=== PATIENT | female | born 1945 | race Caucasian/White ===

== ENCOUNTER 2017-08-13 10:55 | Outpatient (CLI) | payer MEDICARE ==
--- NOTE | 2017-08-14 17:09 | Mammography Report ---
DIGITAL SCREENING MAMMOGRAM: 08/13/2017 CLINICAL INDICATION: A 72-year-old with family history of breast cancer, history of benign biopsy fo r screening. COMPARISON: 07/2016, 11/2014, 11/2013, 11/2012, 10/2011, 10/2010. TECHNIQUE: Routine CC and MLO projections were obtained of the breasts. The breasts again demonstrate heterogeneously dense fibroglandular parenchyma bilaterally. Punctate, typically benign calcifications are present. No suspicious masses, clustered microcalcifications, o r regions of architectural distortion are identified. IMPRESSION: BENIGN FINDINGS. RECOMMENDATION: ROUTINE ANNUAL SCREENING UNLESS OTHERWISE CLINICALLY INDICATED. BIRADS CATEGORY: 2, BENIGN FINDINGS. STANDARD QUALIFYING STATEMENTS 1. This examination was reviewed with the aid of Computed-Aided Detection (CAD). 2. A negative or benign imaging report should not delay biopsy if clinically suspicious findings are present. Consider surgical consultation if warranted. More than 5% of cancers are not identified b y imaging. 3. Dense breasts may obscure an underlying neoplasm. JOB #: [id number] EXT JOB #:[id number]
== END 2017-08-13 10:56 | disposition home or self-care (01) ==
LOC: DI.S 10:55
PROVIDERS: ATTEND Physician Assistant
DX: Z12.31 Encounter for screening mammogram for malignant neoplasm of breast (principal); Z80.3 Family history of malignant neoplasm of breast
CPT/HCPCS: 77067

== ENCOUNTER 2017-10-18 09:39 | Outpatient (CLI) | payer MEDICARE ==
--- NOTE | 2017-10-23 08:42 | XRAY Report ---
EXAMINATION: THREE-VIEW LUMBAR SPINE. 10/18/2017 CLINICAL INDICATION: Pain, radicular symptoms. FINDINGS: AP, lateral, coned-down views of the lumbar spine demonstrate moderate degenerative disk and facet disease, with minimal degenerative dextroscoliosis. There is no evidence of acute fracture or subluxation. IMPRESSION: MODERATE DEGENERATIVE CHANGES. TD: 10/18/2017 13:21 [facility]
== END 2017-10-18 09:40 | disposition home or self-care (01) ==
LOC: DI.S 09:39
PROVIDERS: ATTEND Physician Assistant
DX: M51.36 Other intervertebral disc degeneration, lumbar region (principal); M47.896 Other spondylosis, lumbar region; M41.86 Other forms of scoliosis, lumbar region
CPT/HCPCS: 72100

== ENCOUNTER 2019-04-14 08:03 | Outpatient (CLI) | payer MEDICARE ==
--- NOTE | 2019-04-14 10:45 | Mammography Report ---
Reason: ENCOUNTER FOR SCREENING MAMMOGRAM FOR MALIGNANT NE Procedure Date: 04/14/2019 Accession Number: [id number] / [id number] Procedure: INES - Screening Mammo w/Jae CPT Code: FULL RESULT: EXAM: Screening Mammo w/Jae DATE: 04/14/2019 8:52 AM CLINICAL HISTORY: Screening TECHNIQUE: (B) - Bilateral CC and MLO 2-D/3-D views were obtained. COMPARISON: 08/13/2017, 01/22/2016 PARENCHYMAL PATTERN: (A) - The breasts demonstrate scattered fibroglandular densities bilaterally. FINDINGS: There are no suspicious masses, calcifications, or areas of distortion. IMPRESSION: Negative examination. BI-RADS category 1. RECOMMENDATION: (ANNUAL) - Recommend routine annual screening mammography. BI-RADS CATEGORY: (1) - Negative. STANDARD QUALIFYING STATEMENTS: 1. This examination was not reviewed with the aid of Computer-Aided Detection (CAD). 2. A negative or benign imaging report should not preclude biopsy if clinically suspicious findings are present. 3. Dense breasts may obscure an underlying neoplasm. 4. This examination was reviewed with the aid of 3D breast imaging (tomosynthesis).
== END 2019-04-14 08:04 | disposition home or self-care (01) ==
LOC: DI 08:03
PROVIDERS: ATTEND Physician Assistant
DX: Z12.31 Encounter for screening mammogram for malignant neoplasm of breast (principal)
CPT/HCPCS: 77063; 77067

== ENCOUNTER 2019-04-14 08:05 | Outpatient (CLI) | payer MEDICARE ==
--- NOTE | 2019-04-14 14:39 | DEXA Report ---
Reason: ASYMPTOMATIC MENOPAUSAL STATE Procedure Date: 04/14/2019 Accession Number: [id number] / [id number] Procedure: DEX - Dexa Spine and/or Hip CPT Code: FULL RESULT: EXAM: Dexa Spine and/or Hip DATE: 04/14/2019 8:45 AM CLINICAL HISTORY: Postmenopausal osteoporosis screening TECHNIQUE: Dual energy x-ray absorptiometry (DXA) was performed on a [employer] System. Regions measured are the AP Spine, femoral neck, and if needed forearm. COMPARISON: None. In accordance with the International Society for Clinical Densitometry (ISCD) guidelines, data from previous exams may be reanalyzed using current recommendations and techniques. This is done to allow a more accurate basis for comparison with the current study. FINDINGS: The data for the lumbar spine is as follows: BMD (g/cm/cm) T-SCORE Z-SCORE REGION L1 0.954 -1.5 0.6 L2 1.000 -1.7 0.4 L3 0.996 -1.7 0.4 L4 0.992 -1.7 0.4 TOTAL 0.987 -1.6 0.5 NOTE: All evaluable vertebrae are used for classification The data for the hip is as follows: BMD (g/cm/cm) T-SCORE Z-SCORE REGION Neck 0.839 -1.4 0.6 TOTAL 0.840 -1.3 0.5 NOTE: The femoral neck or total proximal femur, whichever is lowest, is used for classification. IMPRESSION: THE WHO CLASSIFICATION BASED ON THE INTERNATIONAL REFERENCE STANDARD IS OSTEOPENIA. THE FRACTURE RISK IS INCREASED. RECOMMENDATION: Patients with diagnosis of osteoporosis or osteopenia should have regular bone mineral density assessment. For those eligible for Medicare, routine testing is allowed once every 2 years. Testing frequency can be increased for patients who have rapidly progressing disease or for those who are receiving medical therapy to restore bone mass. COMMENT: World Health Organization (WHO) definitions for osteoporosis and osteopenia: NORMAL BMD: T-score at -1.0 or higher, fracture risk is low OSTEOPENIA BMD: T-score between -1.0 and -2.5, fracture risk is increased. OSTEOPOROSIS BMD: T-score at -2.5 or lower, fracture risk is high. National Osteoporosis Foundation recommends: 1. Obtain adequate dietary calcium (at least 1200 mg per day) and vitamin D (400-800 international units per day). 2. Participate, as appropriate, in regular weightbearing and muscle-strengthening exercise. 3. Avoid tobacco use and reduce alcohol and caffeine intake. 4. For more detailed information see the website at www.NOF.org.
== END 2019-04-14 08:06 | disposition home or self-care (01) ==
LOC: DI 08:05
PROVIDERS: ATTEND Physician Assistant
DX: M85.89 Other specified disorders of bone density and structure, multiple sites (principal)
CPT/HCPCS: 77080

== ENCOUNTER 2019-08-27 07:54 | Outpatient (CLI) | payer MEDICARE ==
--- NOTE | 2019-08-28 09:58 | XRAY Report ---
Reason: RT HIP JOINT PAIN, LOW BACK PAIN Procedure Date: 08/27/2019 Accession Number: [id number] / [id number] Procedure: XRS - Hip w/Pelvis 2-3V RT CPT Code: FULL RESULT: EXAM: RIGHT HIP RADIOGRAPHY EXAM DATE: 08/27/2019 08:12 AM. CLINICAL HISTORY: Right hip joint pain, low back pain. COMPARISON: LUMBAR SPINE 2 VIEW 10/18/2017 9:52 AM. TECHNIQUE: 2 views. FINDINGS: Bones: No fractures or bone lesion. Joints: Stable mild to moderate narrowing of the right hip joint space. Mild subchondral sclerotic changes of the superior acetabulum. Stable minimal lateral osteophytic spurring of the superior acetabular margin. The imaged portion of the sacroiliac joints appear within normal limits and stable. Soft Tissues: Normal. No soft tissue swelling. IMPRESSION: Stable mild to moderate degenerative changes at right hip. RADIA
--- NOTE | 2019-08-28 10:50 | XRAY Report ---
Reason: RT HIP PAIN, LOW BACK PAIN Procedure Date: 08/27/2019 Accession Number: [id number] / [id number] Procedure: XRS - Lumbar Spine 2 View CPT Code: FULL RESULT: EXAM: LUMBOSACRAL SPINE RADIOGRAPHY EXAM DATE: 08/27/2019 08:12 AM. CLINICAL HISTORY: Right hip pain, low back pain. COMPARISONS: HIP W/PELVIS 2-3V RT 08/27/2019 8:16 AM LUMBAR SPINE 2 VIEW 10/18/2017 9:52 AM. TECHNIQUE: 3 views. FINDINGS: Alignment: Minimal rightward scoliosis, potentially related to positioning. There is 6 mm of anterolisthesis of L4 on L5. Alignment elsewhere appears within normal limits. 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 Five [id number]-[id number] lumbar vertebral bodies are present. No acute fractures or bone lesions. 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 Disks: Mild to moderate disk space narrowing of the mid to lower lumbar spine. Minimal associated vertebral body endplate osteophytic spurring. Facets: Moderate hypertrophic changes of the facet articulations bilaterally L5-S1. Sacroiliac Joints: Within normal limits Soft Tissues: Normal. The visualized bowel gas pattern is normal. IMPRESSION: Moderate degenerative changes of the lower lumbar spine. Grade 1 anterolisthesis L4 on L5. RADIA
== END 2019-08-27 07:55 | disposition home or self-care (01) ==
LOC: DI.S 07:54
PROVIDERS: ATTEND Physician Assistant
DX: M16.11 Unilateral primary osteoarthritis, right hip (principal); M51.36 Other intervertebral disc degeneration, lumbar region; M47.817 Spondylosis without myelopathy or radiculopathy, lumbosacral region; M43.16 Spondylolisthesis, lumbar region
CPT/HCPCS: 72100

== ENCOUNTER 2020-10-07 15:57 | Outpatient (CLI) | payer MEDICARE | END 2020-10-07 15:58 | disposition home or self-care (01) | LOC: COV 15:57 | PROVIDERS: ATTEND Family Medicine | DX: M79.10 Myalgia, unspecified site (principal); R07.0 Pain in throat; Z20.828 Contact with and (suspected) exposure to other viral communicable diseases ==

== ENCOUNTER 2023-06-28 08:38 | Emergency (ER) | payer MEDICARE ==
[2023-06-28 08:47] VITALS: BP 179/74; O2SAT 99
[2023-06-28] MEDS ORDERED: TETANUS/DIPHTHERIA/PERTUSSIS 0.5 ML SYRINGE IM ONE (09:03)
[2023-06-28] MEDS ORDERED: BACITRACIN ZINC OINT 1 PACKET TOP STA (09:51)
--- NOTE | 2023-06-28 09:57 | ED Physician Documentation ---
PD HPI SKIN - Stated complaint Stated Complaint: RT ARM LAC - Chief complaint Chief Complaint: Laceration - History obtained from History obtained from: Patient - Additional information Additional information: The patient comes to the emergency department chief complaint of right forearm laceration after catching her skin on a hook last night. She states that her son told her she should get it checked out and that is why she is here. No other injuries or complaints. She is not sure when her last tetanus shot was. PD PAST MEDICAL HISTORY - Past Medical History Past Medical History: Yes Cardiovascular: Hypertension, High cholesterol - Past Surgical History Past Surgical History: No - Present Medications Home Medications: Ambulatory Orders Medication Instructions Recorded Confirmed Atorvastatin [Lipitor] 20 mg PO DAILY 06/28/23 06/28/23 - Allergies Allergies/Adverse Reactions: Allergies Allergy/AdvReac Type Severity Reaction Status Date / Time codeine Allergy Unknown Verified 06/28/23 08:45 - Social History Does the pt smoke?: No Smoking Status: Never smoker Does the pt drink ETOH?: No Does the pt have substance abuse?: No - Immunizations Immunizations are current?: Yes PD ED PE NORMAL - Vitals Vital signs reviewed: Yes - General General: Alert and oriented X 3, No acute distress, Well developed/nourished - HEENT HEENT: Atraumatic, PERRL, EOMI, Moist mucous membranes - Neck Neck: Supple, no meningeal sign - Cardiac Cardiac: Strong equal pulses - Respiratory Respiratory: No respiratory distress - Derm Derm: Normal color, Warm and dry, No rash, Other (3-1/2 cm flap laceration to right dorsal forearm. Bleeding controlled. No foreign bodies. Tissue under flap is very thin.) - Extremities Extremities: No deformity, Normal ROM s pain, No edema - Neuro Neuro: Alert and oriented X 3, No motor deficit, No sensory deficit - Psych Psych: Normal mood, Normal affect Results - Vitals Vitals: Oxygen O2 Source Room air Procedures - Laceration (location) Right forearm Length in cm: 3.5 Wound type: Curved, Flap, Into subcut fat, Clean Neurovascular status: Sensory intact, Motor intact, Vascular intact Anesthesia: Lidocaine 1% Wound preparation: Hibiclens, Irrigated copiously NS, Wound explored, To the base Skin layer closure: Interrupted (Vicryl), Size #-0 - enter number (4.0), Sutures - enter # (7) PD Medical Decision Making - ED course Complexity details: considered differential, d/w patient ED course: The patient's wound was repaired as above. We have discussed wound care at home, the absorbable nature of the sutures, signs of infection, and the usual indications for follow-up or return. Departure - Departure Disposition: 01 Home, Self Care Clinical Impression: Laceration Condition: Stable Instructions: ED Laceration All Comments: Your wound was repaired with 7 absorbable sutures today. These should be kept in place for at least 7 days. Although they will ultimately dissolve on their own, if you wish to have them removed after 7 days, you may. Your laceration consisted mainly of a very thin flap of tissue that was peeled back from the flesh underneath, with a little bit deeper of a cut in the middle. Because the amount of tissue under the flap of skin is so thin, it is possible that some of the thinner parts will not regenerate but rather, will off. In this case, new skin will grow on its own. It remains to be seen whether the tissue will survive or not. In the meantime, you may apply an antibiotic ointment such as Bacitracin or Neosporin to the wound until a dry scab forms. You should be careful with the wound, given that 1 side of it is fairly thin and will tear easily. You may allow water and soap to run over the wall wound but please do not rub, scrub, or immerse the wound until sutures are out. This is to help prevent infection. Your wound has been repaired sterilely and in general, these do not get infected; however, if you begin to notice redness or swelling spreading progressively away from the wound, or if you notice that the wound is becoming mushy and producing drainage, you should have it rechecked immediately. Forms: PCP List Discharge Date/Time: 06/28/23 10:17
== END 2023-06-28 10:17 | disposition home or self-care (01) ==
LOC: ED 08:38
DX: S51.811A Laceration without foreign body of right forearm, initial encounter (principal); W22.8XXA Striking against or struck by other objects, initial encounter; I10 Essential (primary) hypertension; E78.00 Pure hypercholesterolemia, unspecified; Z79.899 Other long term (current) drug therapy; Z23 Encounter for immunization
CPT/HCPCS: 12002; 90471; 90715; 99282; A9270